=== PATIENT | male | born 1980 | race Caucasian/White ===

== ENCOUNTER → 2017-01-17 | Outpatient (CLI) | payer OTHER ==
[~2017-01-17] MED LIST: FLON1SPR; IBUP-1022 PO; NORC1TAB4 PO; TYLE500T78 PO; ZOFR4TAB3 PO
--- NOTE | 2017-01-17 14:10 | REP ---
Clinical: Intermittent right-sided pain. Technique: Tabares scale and color Doppler evaluation using linear and curved array transducer with color Doppler evaluation. Findings: The testicles and epididymi are relatively normal in contour, size, echogenicity, vascularity and overall appearance. There is no evidence for intratesticular mass lesion, infectious/inflammatory process, with torsion. No incidental note is made of a small right hydrocele and few left varicoceles measuring up to 4 mm diameter. Right testicle measures 4.8 x 2.2 x 3.0 cm cm. Left testicle measures 4.8 x 2.0 x 3.0 cm cm. Impression: Relatively normal appearance to the bilateral testicles and epididymi. Small right hydrocele. Few left-sided varicoceles up to 4 mm. Signed by Presley Rios MD 01/17/2017 02:02 P
== END ==
LOC: M SMT 13:08
PROVIDERS: ATTEND Nurse Practitioner Women's Health
DX: N50.819 Testicular pain, unspecified (principal); N43.3 Hydrocele, unspecified; I86.1 Scrotal varices

== ENCOUNTER 2017-02-12 14:05 | Emergency (ER) | payer OTHER ==
[~2017-02-12] VITALS: Ht 170.2 cm; Wt 90.9 kg
[~2017-02-12 14:05] MED LIST changes: -IBUP-1022 PO; -TYLE500T78 PO; -ZOFR4TAB3 PO
[2017-02-12 14:06] VITALS: BP 135/70
[2017-02-12] MEDS ORDERED: IBUP-1022 PO (14:12)
[2017-02-12] MEDS ORDERED: TYLE500T78 PO (14:12)
== END 2017-02-12 15:05 | disposition home or self-care (01) ==
LOC: M ED 14:05
DX: S06.0X0A Concussion without loss of consciousness, initial encounter (principal); S01.511A Laceration without foreign body of lip, initial encounter; X58.XXXA Exposure to other specified factors, initial encounter; Y92.9 Unspecified place or not applicable; Y93.61 Activity, american tackle football; Y99.9 Unspecified external cause status; Z79.899 Other long term (current) drug therapy

== ENCOUNTER 2017-02-17 13:53 | Emergency (ER) | payer OTHER ==
[~2017-02-17] VITALS: Ht 170.2 cm; Wt 90.9 kg
[~2017-02-17 13:53] MED LIST changes: +IBUP-1022 PO; +TYLE500T78 PO
[2017-02-17 13:54] VITALS: BP 126/73
[2017-02-17] MEDS ORDERED: IBUP-1022 PO (15:43)
[2017-02-17] MEDS ORDERED: ZOFR4TAB3 PO (15:43)
== END 2017-02-17 15:50 | disposition home or self-care (01) ==
LOC: M ED 13:53
DX: F07.81 Postconcussional syndrome (principal); Z79.899 Other long term (current) drug therapy

== ENCOUNTER → 2017-06-09 | Outpatient (REF) | payer OTHER ==
[2017-06-09 14:26] LABS: INFLUENZA A AMPLIFICATION POSITIVE (NEGATIVE); INFLUENZA B AMPLIFICATION NEGATIVE (NEGATIVE); RSV AMPLIFICATION NEGATIVE (NEGATIVE)
== END ==
LOC: M LAB REF 13:14
DX: J11.1 Influenza due to unidentified influenza virus with other respiratory manifestations (principal)
CPT/HCPCS: 87631

== ENCOUNTER → 2018-11-25 | Outpatient (CLI) | payer OTHER ==
[~2018-11-25] MED LIST changes: -NORC1TAB4 PO; +NORC1TAB7 PO; +ZOFR4TAB14 PO
--- NOTE | 2018-11-26 10:01 | REP ---
RIGHT HIP, TWO VIEWS: Two views right hip performed. There is no fracture or dislocation. There is mild degenerative change with mild joint space narrowing, subchondral sclerosis and spurring. IMPRESSION: Mild degenerative changes. Electronically Signed by Juvencio Tabares MD 11/27/2018 01:25 P
--- NOTE | 2018-11-26 10:10 | REP ---
LUMBOSACRAL SPINE: Three AP and lateral views of the lumbosacral spine are performed. There is no compression fracture or malalignment with normal lumbar lordosis. There is mild spurring of lower thoracic vertebral bodies. Lumbar disc space heights are relatively well maintained. There does appear to be sclerosis at the posterior facets at L3-4, L4-5 and L5-S1. Posterior elements are intact. IMPRESSION: There appear to be degenerative changes of the posterior facets at L3-4 through L5-S1. Electronically Signed by Juvencio Tabares MD 11/27/2018 01:27 P
== END ==
LOC: M WUC 11:12
DX: M54.5 Low back pain (principal); M25.551 Pain in right hip; M51.36 Other intervertebral disc degeneration, lumbar region; M51.37 Other intervertebral disc degeneration, lumbosacral region

== ENCOUNTER 2019-05-21 09:15 | Emergency (ER) | payer BC, OTHER ==
[~2019-05-21] VITALS: Ht 170.2 cm; Wt 94.7 kg
[2019-05-21] MEDS ORDERED: METOCLOPRAMIDE INJ 10MG/2ML VIAL (J2765) IV ONE (10:15)
[2019-05-21] MEDS ORDERED: NS 1,000 ML IV ONE (10:15)
[2019-05-21] MEDS ORDERED: KETOROLAC 30 MG/ML VIAL (J1885) IV ONE (10:15)
[2019-05-21 10:33] LABS: BASO # 0.1 10^3/uL (0.0-0.2); BASO % 0.5 % (0.0-1.0); EOS # 0.3 10^3/uL (0.0-0.5); HEMATOCRIT 48.2 % (42.0-52.0); HEMOGLOBIN 16.2 g/dl (13.5-17.5); LYMPH # 1.9 10^3/uL (1.5-5.0); LYMPH % 19.3 % (24.0-44.0); MEAN CORPUSCULAR HEMOGLOBIN 30.5 pg (27.0-33.0); MEAN CORPUSCULAR HGB CONC 33.6 g/dl (32.0-36.5); MEAN CORPUSCULAR VOLUME 90.6 fl (80.0-96.0); MONO # 0.6 10^3/uL (0.0-0.8); MONO % 6.1 % (0.0-5.0); NEUTROPHILS # 6.9 10^3/uL (1.5-8.5); NEUTROPHILS % 70.7 % (36.0-66.0); PLATELET COUNT, AUTOMATED 247 10^3/uL (150-450); RED BLOOD COUNT 5.32 10^6/uL (4.30-6.10); WHITE BLOOD COUNT 9.7 10^3/uL (4.0-10.0)
[2019-05-21 10:52] LABS: ERYTHROCYTE SEDIMENTATION RATE 6 mm/hr (0-15)
[2019-05-21 10:53] LABS: BLOOD UREA NITROGEN 11 MG/DL (7-18); C REACTIVE PROTEIN QUANTITATIV 0.69 MG/DL (0.00-0.30); CALCIUM LEVEL 8.7 MG/DL (8.5-10.1); CARBON DIOXIDE LEVEL 24 MEQ/L (21-32); CHLORIDE LEVEL 110 MEQ/L (98-107); CREATININE FOR GFR 0.95 MG/DL (0.70-1.30); GLOMERULAR FILTRATION RATE > 60.0 (>60); GLUCOSE, FASTING 95 MG/DL (70-100); POTASSIUM SERUM 3.8 MEQ/L (3.5-5.1); SODIUM LEVEL 141 MEQ/L (136-145)
[2019-05-21] MEDS ORDERED: ACETAMINOPHEN 500 MG TAB PO ONE (11:45)
[2019-05-21] MEDS ORDERED: KETO10TAB PO (11:46)
[2019-05-21] MEDS ORDERED: ONDA4TAB6 PO (11:46)
[2019-05-21 11:58] VITALS: BP 135/77
== END 2019-05-21 12:02 | disposition home or self-care (01) ==
LOC: M ED 09:15
DX: G43.909 Migraine, unspecified, not intractable, without status migrainosus (principal)
CPT/HCPCS: 80048; 85025; 85652; 86140; 96361; 96374; 96375; 99284; J1885; J2765

== ENCOUNTER → 2019-06-04 | Outpatient (REF) | payer BC ==
[~2019-06-04] MED LIST changes: +KETO10TAB PO; +ONDA4TAB6 PO
[2019-06-04 18:35] LABS: APPEARANCE, URINE CLEAR (CLEAR); BACTERIA, URINE AUTO NEGATIVE (NEGATIVE); BILIRUBIN, URINE AUTO NEGATIVE (NEGATIVE); BLOOD, URINE BLOOD NEGATIVE (NEGATIVE); COLOR, URINE YELLOW (YELLOW); GLUCOSE, URINE (UA) AUTO NEGATIVE (NEGATIVE); KETONE, URINE AUTO TRACE mg/dL (NEGATIVE); LEUKOCYTE ESTERASE, URINE AUTO NEGATIVE (NEGATIVE); MUCUS, URINE SMALL (NEGATIVE); NITRITE, URINE AUTO NEGATIVE (NEGATIVE); PROTEIN, URINE AUTO NEGATIVE (NEGATIVE); RBC, URINE AUTO 1 /HPF (0-3); SPECIFIC GRAVITY URINE AUTO 1.024 (1.002-1.035); SQUAMOUS EPITHELIAL CELL UR AU 0 /HPF (0-6); UROBILINOGEN, URINE AUTO 0.2 mg/dL (0.0-2.0); WBC, URINE AUTO 0 /HPF (0-3)
[2019-06-04 20:41] LABS: CHLAMYDIA DNA AMPLIFICATION NEGATIVE (NEGATIVE); GC DNA AMPLIFICATION NEGATIVE (NEGATIVE)
== END ==
LOC: M SMT 16:51
PROVIDERS: ATTEND Nurse Practitioner Family
DX: N50.819 Testicular pain, unspecified (principal)

== ENCOUNTER → 2019-06-06 | Outpatient (CLI) | payer BC ==
--- NOTE | 2019-06-07 07:09 | REP ---
Clinical: Scrotal/testicular pain. Technique: Real time choe scale and color Doppler ultrasound examination using linear high frequency transducer. Findings: The bilateral testicles are relatively normal in contour, size, echogenicity, and vascularity. No evidence for torsion, intratesticular mass lesion, or infectious/inflammatory process. Very few scattered parenchymal calcifications are nonspecific. The left spermatic cord appears mildly prominent and echogenic as compared to the right cord and early left varicoceles cannot be excluded. No hydroceles. Right testicle measures 5.0 x 2.2 x 2.7 cm. Left testicle measures 4.6 x 2.1 x 3.0 cm. Impression: 1. Mildly prominent left spermatic cord suggesting the possibility of funiculitis. 2. Early mild left varicoceles cannot be excluded. Electronically Signed by Presley Rios MD 06/07/2019 07:00 A
== END ==
LOC: M RAD 13:23
PROVIDERS: ATTEND Nurse Practitioner Family
DX: N50.819 Testicular pain, unspecified (principal)

== ENCOUNTER → 2019-07-09 | Outpatient (CLI) | payer BC ==
--- NOTE | 2019-07-09 08:44 | REPVR ---
PROCEDURE INFORMATION: Exam: CT Head Without Contrast Exam date and time: 07/09/2019 8:28 AM Age: 38 years old Clinical indication: Pain; Headache; Migraine; Additional info: Ocular migraine, closed FX of orbit TECHNIQUE: Imaging protocol: Computed tomography of the head without contrast. Radiation optimization: All CT scans at this facility use at least one of these dose optimization techniques: automated exposure control; mA and/or kV adjustment per patient size (includes targeted exams where dose is matched to clinical indication); or iterative reconstruction. COMPARISON: No relevant prior studies available. FINDINGS: Brain: Normal. No hemorrhage. Unremarkable white matter. No mass effect. Ventricles: Normal. No ventriculomegaly. Bones/joints: Unremarkable. No acute fracture. Sinuses: Visualized sinuses are unremarkable. No fluid levels. Mastoid air cells: Visualized mastoid air cells are well aerated. Soft tissues: Unremarkable. IMPRESSION: No acute intracranial abnormality. Electronically signed by: Angelia Lombardi On 07/09/2019 08:44:07 AM
== END ==
LOC: M RAD 08:19
PROVIDERS: ATTEND Physician Assistant
DX: G43.109 Migraine with aura, not intractable, without status migrainosus (principal); S02.85XS Fracture of orbit, unspecified, sequela; X58.XXXS Exposure to other specified factors, sequela

== ENCOUNTER → 2020-11-06 | Outpatient (CLI) | payer BC ==
[2020-11-06 11:34] LABS: ALT/SGPT 37 U/L (12-78); BILIRUBIN,TOTAL 0.5 MG/DL (0.2-1.0); BLOOD UREA NITROGEN 13 MG/DL (7-18); CALCIUM LEVEL 8.9 MG/DL (8.5-10.1); CARBON DIOXIDE LEVEL 27 MEQ/L (21-32); CHLORIDE LEVEL 107 MEQ/L (98-107); CHOLESTEROL LEVEL 231 MG/DL (<200); CHOLESTEROL RISK RATIO 4.277 (<5); CREATININE FOR GFR 0.92 MG/DL (0.70-1.30); FREE T4 0.91 NG/DL (0.76-1.46); GLOMERULAR FILTRATION RATE > 60.0 (>60); GLUCOSE, FASTING 83 MG/DL (70-100); HDL CHOLESTEROL 54 MG/DL (>40); LDL CHOLESTEROL 154 MG/DL (<100); NON-HDL-C 177 MG/DL; POTASSIUM SERUM 4.6 MEQ/L (3.5-5.1); SODIUM LEVEL 141 MEQ/L (136-145); THYROID STIMULATING HORMONE 0.974 uIU/ML (0.358-3.740); TOTAL PROTEIN 7.3 GM/DL (6.4-8.2); TRIGLYCERIDES LEVEL 116 MG/DL (<150)
[2020-11-07 20:09] LABS: TESTOSTERONE FREE (DIRECT) 13.8 pg/mL (6.8-21.5)
== END ==
LOC: M PLALAB 08:48
PROVIDERS: ATTEND Physician Assistant
DX: Z00.00 Encounter for general adult medical examination without abnormal findings (principal)

== ENCOUNTER → 2024-06-25 | Outpatient (REF) | payer BC ==
[~2024-06-25] MED LIST changes: +ONDA-282 PO; -ONDA4TAB6 PO
== END ==
LOC: M LAB REF 12:10
PROVIDERS: ATTEND Internal Medicine
DX: E78.5 Hyperlipidemia, unspecified (principal)